=== PATIENT | female | born 1985 | race Caucasian/White ===

== ENCOUNTER 2017-11-05 13:30 | Emergency (ER) | payer OTHER, MEDICAID ==
[~2017-11-05] VITALS: Ht 175.3 cm; Wt 117.9 kg
[~2017-11-05 13:30] MED LIST: AMOXICILLIN500 M1 PO; AMOXICILLIN875 MG PO; AZITHROMYCIN 2250 MG PO; BIRTH CONTROL; CARAFATE1 GM PO; CEPHALEXIN 500500 M3 PO; CIPRODEX OTIC7.5 ML OTIC; CLARITIN10 M3 PO; CORTISPORIN OTI10 M2 OT; CORTISPORIN OTI10 ML OTIC; CORTIZONE-1028 G1 TP; FLONASE 0.05%50 MCG NASAL; HYDROCODON-ACE1 EAC7 PO; IBUPROFEN 800800 M1 PO; LIDOCAINE VISC100 ML PO; MEDROL DOSPAK21 TA1 PO; MEDROLDOSEPACK PO; MONONESSA1 EACH; NORCO 5-325 TA1 EAC1 PO; NORCO 5-325 TA1 EACH; OTIC CARE OTIC14 ML OT; PERCOCET PO; PROAIR HFA8.5 GM; PROMETHAZINE D480 ML PO; PROMETHAZINE-D120 ML PO; TESSALON PERLE100 MG PO; TRAMADOL 50 MG50 MG PO; TRINATE TABLET1 TAB PO; ZOLOFT 50 MG TA50 M1
[2017-11-05] MEDS ORDERED: ALBUTEROL2.5 MG/31 INH (13:35)
[2017-11-05] MEDS ORDERED: KEFLEX500 M1 PO (13:45)
[2017-11-05] MEDS ORDERED: ACETAMINOPHEN-1 EAC1 PO (13:46)
[2017-11-05 13:51] VITALS: BP 133/98
== END 2017-11-05 13:52 | disposition home or self-care (01) ==
LOC: M.ERS 13:30
DX: H66.93 Otitis media, unspecified, bilateral (principal); G43.909 Migraine, unspecified, not intractable, without status migrainosus; F32.9 Major depressive disorder, single episode, unspecified; J45.909 Unspecified asthma, uncomplicated; F17.210 Nicotine dependence, cigarettes, uncomplicated; Z88.1 Allergy status to other antibiotic agents

== ENCOUNTER 2017-11-18 20:37 | Emergency (ER) | payer MEDICAID ==
[~2017-11-18] VITALS: Ht 175.3 cm; Wt 117.9 kg
[~2017-11-18 20:37] MED LIST changes: +ACETAMINOPHEN-1 EAC1 PO; +ALBUTEROL2.5 MG/31 INH; +KEFLEX500 M1 PO
[2017-11-18 20:55] LABS: URINE BILIRUBIN NEGATIVE (Negative); URINE BLOOD 2+ (Negative); URINE CLARITY CLEAR; URINE COLOR YELLOW; URINE GLUCOSE-RANDOM NEGATIVE (Negative); URINE KETONES NEGATIVE (Negative); URINE LEUKOCYTES-REFLEX NEGATIVE (Negative); URINE NITRITE-REFLEX NEGATIVE (Negative); URINE PROTEIN 2+ (Negative); URINE SPECIFIC GRAVITY >= 1.030 (1.005-1.030); URINE UROBILINOGEN 0.2 E.U./dl (0.2-1.0)
[2017-11-18 21:04] LABS: MUCUS 0-3 Light strn/LPF (None Seen); SQUAMOUS >10 Many /LPF (0-3)
[2017-11-18 21:05] LABS: URINE RBC 3-10 Few /HPF (0-2); URINE WBC-REFLEX 0-5 Rare /HPF (0-5)
[2017-11-18 21:06] LABS: HYALINE CASTS 0-3 Few /LPF (None Seen)
[2017-11-18 21:07] LABS: CRYSTALS None Seen /LPF (None Seen)
[2017-11-18 21:09] LABS: ABSOLUTE BASOPHILS 0.1 thou/uL (0.0-0.2); ABSOLUTE EOSINOPHILS 0.3 thou/uL (0.0-0.7); ABSOLUTE LYMPHOCYTES 3.5 thou/uL (0.8-5.3); ABSOLUTE NEUTROPHILS 6.4 thou/uL (1.6-8.1); BASOPHILS 0.9 %; EOSINOPHILS 2.7 %; HEMOGLOBIN 13.5 gm/dL (12.0-15.0); LYMPHOCYTES 31.1 %; MCH 27.5 pg (26.0-34.0); MCV 83.5 fL (80.0-100.0); MPV 10.5 fl. (7.2-11.1); NUCLEATED RBCS 0 /100WBC; PLATELET COUNT* 287 thou/uL (150-400); POLYS 56.3 %; RDW-CV 14.7 % (10.5-14.5); WBC 11.3 thou/uL (4.0-11.0)
[2017-11-18 21:25] LABS: ALBUMIN 3.8 g/dL (3.4-5.0); CALCIUM 8.9 mg/dL (8.5-10.1); CREATININE 0.7 mg/dL (0.6-1.3); POTASSIUM 3.9 mmol/L (3.5-5.1); TOTAL BILIRUBIN 0.2 mg/dL (<0.1-1.0); TOTAL PROTEIN 7.7 g/dL (6.4-8.2)
[2017-11-18] MEDS ORDERED: NORCO 5-325 TA1 EAC1 PO (22:54)
[2017-11-18] MEDS ORDERED: FLOMAX0.4 MG PO (22:54)
[2017-11-18] MEDS ORDERED: CIPRO250 M2 PO (22:54)
[2017-11-18] MEDS ORDERED: PHENERGAN 25 MG25 M1 PO (22:54)
[2017-11-18 23:51] VITALS: BP 132/79
== END 2017-11-18 23:52 | disposition home or self-care (01) ==
LOC: M.ERS 20:37
PROVIDERS: Nurse Practitioner
DX: N20.0 Calculus of kidney (principal); G43.909 Migraine, unspecified, not intractable, without status migrainosus; J45.909 Unspecified asthma, uncomplicated; F32.9 Major depressive disorder, single episode, unspecified; Z98.890 Other specified postprocedural states

== ENCOUNTER 2018-03-17 08:41 | Emergency (ER) | payer OTHER, MEDICAID ==
[~2018-03-17] VITALS: Ht 172.7 cm; Wt 119.8 kg
[~2018-03-17 08:41] MED LIST changes: +CIPRO250 M2 PO; +FLOMAX0.4 MG PO; +PHENERGAN 25 MG25 M1 PO
[2018-03-17] MEDS ORDERED: PREDNISONE50 MG PO (10:03)
[2018-03-17] MEDS ORDERED: AUGMENTIN 875-1 EACH PO (10:03)
[2018-03-17] MEDS ORDERED: VENTOLIN HFA 1818 GM INH (10:06)
[2018-03-17 10:16] VITALS: BP 161/92
== END 2018-03-17 10:18 | disposition home or self-care (01) ==
LOC: M.ERS 08:41
DX: J45.909 Unspecified asthma, uncomplicated (principal); J32.9 Chronic sinusitis, unspecified; G43.909 Migraine, unspecified, not intractable, without status migrainosus; F32.9 Major depressive disorder, single episode, unspecified; Z98.890 Other specified postprocedural states; F17.210 Nicotine dependence, cigarettes, uncomplicated; Z88.2 Allergy status to sulfonamides; Z88.8 Allergy status to other drugs, medicaments and biological substances

== ENCOUNTER 2018-07-18 13:06 | Emergency (ER) | payer OTHER, MEDICAID ==
[~2018-07-18] VITALS: Ht 175.3 cm; Wt 121.1 kg
[~2018-07-18 13:06] MED LIST changes: +AUGMENTIN 875-1 EACH PO; +PREDNISONE50 MG PO; +VENTOLIN HFA 1818 GM INH
[2018-07-18] MEDS ORDERED: ZOLOFT100 MG PO (13:21)
[2018-07-18] MEDS ORDERED: AUGMENTIN 500-1 EACH PO (13:47)
[2018-07-18] MEDS ORDERED: VENTOLIN HFA 1818 GM INH (13:47)
[2018-07-18] MEDS ORDERED: PREDNISONE 20 M20 MG PO (13:47)
[2018-07-18 14:29] VITALS: BP 139/81
== END 2018-07-18 14:30 | disposition home or self-care (01) ==
LOC: M.ERS 13:06
DX: H66.93 Otitis media, unspecified, bilateral (principal); J45.901 Unspecified asthma with (acute) exacerbation; G43.909 Migraine, unspecified, not intractable, without status migrainosus; F32.9 Major depressive disorder, single episode, unspecified; F17.210 Nicotine dependence, cigarettes, uncomplicated; Z88.1 Allergy status to other antibiotic agents; Z88.2 Allergy status to sulfonamides; Z98.890 Other specified postprocedural states

== ENCOUNTER 2018-07-28 07:56 | Inpatient (IN) | payer MEDICAID ==
[~2018-07-28] VITALS: Ht 175.3 cm; Wt 120.1 kg
[~2018-07-28 07:56] MED LIST changes: +AUGMENTIN 500-1 EACH PO; +PREDNISONE 20 M20 MG PO; +ZOLOFT100 MG PO
[2018-07-28 08:03] VITALS: BP 140/89
[2018-07-28 09:54] LABS: URINE BILIRUBIN NEGATIVE (Negative); URINE BLOOD NEGATIVE (Negative); URINE CLARITY CLEAR; URINE COLOR YELLOW; URINE GLUCOSE-RANDOM NEGATIVE (Negative); URINE KETONES NEGATIVE (Negative); URINE LEUKOCYTES-REFLEX NEGATIVE (Negative); URINE NITRITE-REFLEX NEGATIVE (Negative); URINE PROTEIN NEGATIVE (Negative); URINE SPECIFIC GRAVITY >= 1.030 (1.005-1.030); URINE UROBILINOGEN 0.2 E.U./dl (0.2-1.0)
[2018-07-28 09:58] LABS: ABSOLUTE EOSINOPHILS 0.2 thou/uL (0.0-0.7); ABSOLUTE LYMPHOCYTES 1.6 thou/uL (0.8-5.3); ABSOLUTE MONOCYTES 0.8 thou/uL (0.0-1.2); ABSOLUTE NEUTROPHILS 7.2 thou/uL (1.6-8.1); BASOPHILS 0.4 %; EOSINOPHILS 1.8 %; HEMATOCRIT 38.5 % (37.0-47.0); LYMPHOCYTES 16.2 %; MCHC 33.7 g/dL (28.0-37.0); MCV 83.1 fL (80.0-100.0); MONOCYTES 7.9 %; MPV 8.6 fl. (7.2-11.1); NUCLEATED RBCS 0 /100WBC; PLATELET COUNT* 298 thou/uL (150-400); POLYS 73.7 %; RBC 4.63 mil/uL (4.20-5.00); RDW-CV 13.8 % (10.5-14.5); WBC 9.7 thou/uL (4.0-11.0)
[2018-07-28 10:07] LABS: CALCIUM 9.4 mg/dL (8.5-10.1); CREATININE 0.6 mg/dL (0.6-1.3); POTASSIUM 3.9 mmol/L (3.5-5.1)
[2018-07-28 10:11] LABS: ALBUMIN 3.3 g/dL (3.4-5.0); TOTAL BILIRUBIN 0.2 mg/dL (<0.1-1.0); TOTAL PROTEIN 7.5 g/dL (6.4-8.2)
[2018-07-28 10:11] LABS: BE -2.3 mmol/L (-2 to +3); HCO3 18.4 mmol/L (22.0-26.0); PCO2 22.3 mmHg (35.0-45.0); PO2 69.1 mmHg (75.0-100.0); pH 7.534 (7.340-7.450)
[2018-07-28 10:33] VITALS: BP 148/79
[2018-07-28 10:45] VITALS: BP 151/80
[2018-07-28 11:53] VITALS: BP 138/77
[2018-07-28 17:09] VITALS: BP 124/68
--- NOTE | 2018-07-28 17:14 | NUR ---
PATIENT ADMITTED TO ROOM 308 FROM ER. ALERT AND ORIENTED X 4. PATIENT PLACED ON 2L FOR ABG VALUES. IVF INFUSING, SCHED ABX INFUSED ORDERED. UP WITH ASSISTANCE; [address] PATIENT GIVEN PRN HYDROCODONE FOR CHEST/BACK PAIN, GOOD RELIEF NOTED. PATIENT GIVEN 2ND DOSE OF VICODIN FOR HEADACHE THIS EVENING, PATIENT ALSO REQUESTING ICE PACK. SCHED STEROIDS AND RT TREATMENTS ORDERED.
[2018-07-28 20:30] VITALS: BP 134/68
[2018-07-29 00:40] VITALS: BP 110/67; BP 120/70
[2018-07-29 03:45] VITALS: BP 108/60
--- NOTE | 2018-07-29 06:08 | NUR ---
PT SLEPT ON AND OFF THIS SHIFT. ASSESSMENT DOCUMENTED. MEDS GIVEN PER E-SEP. IV PATENT, FLUIDS INFUSING. PAIN MEDS GIVEN PER E-SEP. PT REQUESTED, SOMETHING TO HELP HER SLEEP, NOTIFIED, ORDERS RECIEVED. PT ASKED TO TRY TO GO WITHOUT O2 PART OF SHIFT, O2 ENDED UP BEING PLACED BACK ON DUE TO O2 SAT DROPPING TO 80'S. WILL CONTINUE WITH PLAN OF CARE.
[2018-07-29 07:36] VITALS: BP 106/63
[2018-07-29] MEDS ORDERED: BENADRYL25 MG PO (11:51)
[2018-07-29] MEDS ORDERED: EXCEDRIN MIGRA1 EAC1 PO (11:51)
[2018-07-29 16:00] VITALS: BP 117/69
--- NOTE | 2018-07-29 16:45 | NUR ---
ASSESSMENT COMPLETE. PT ALERT AND ORIENTED X4. PT REPORTS MIGRAINE AND PAIN IN BACK/CHEST FROM COUGHING. DR STARTED MIGRAINE MEDICATION PRN. PT IS ON 2L OK NC WITH [place] SATS. SOA WITH ACTIVITY. PT IS SR ON TELE MONITOR. IV FLUIDS INFUSING. PT DENIES N/V. REPORTS CONSTIPATION, DR STARTED MIRALAX BID. VSS, AFEBRILE. PT IS UP AD MANJIT WITH STEADY GAIT. SEE ASSESSMENT AND VITALS FOR OTHER DETAILS. CALL LIGHT WITHIN REACH. WILL CONTINUE PLAN OF CARE
[2018-07-29 20:00] VITALS: BP 103/54
[2018-07-30 04:05] LABS: ABSOLUTE LYMPHOCYTES 1.5 thou/uL (0.8-5.3); ABSOLUTE MONOCYTES 0.7 thou/uL (0.0-1.2); ABSOLUTE NEUTROPHILS 11.8 thou/uL (1.6-8.1); BASOPHILS 0.2 %; HEMATOCRIT 35.1 % (37.0-47.0); HEMOGLOBIN 11.4 gm/dL (12.0-15.0); LYMPHOCYTES 10.7 %; MCH 27.4 pg (26.0-34.0); MCHC 32.4 g/dL (28.0-37.0); MCV 84.6 fL (80.0-100.0); MONOCYTES 5.1 %; MPV 9.4 fl. (7.2-11.1); NUCLEATED RBCS 0 /100WBC; PLATELET COUNT* 289 thou/uL (150-400); RBC 4.15 mil/uL (4.20-5.00); WBC 14.1 thou/uL (4.0-11.0)
--- NOTE | 2018-07-30 05:33 | NUR ---
PT SLEPT ON AND OFF THIS SHIFT. ASSESSMENT DOCUMENTED. MEDS GIVEN PER E-SEP. IV PATNET, FLUIDS INFUSING. FIORICET GIVEN FOR MIGRANE AND PAIN MEDS GIVEN FOR BACK AND CHEST PAIN FROM COUGHING. WILL CONTINUE WITH PLAN OF CARE.
[2018-07-30 07:28] VITALS: BP 125/76
[2018-07-30] MEDS ORDERED: PREDNISONE 20 M20 MG PO (10:58)
[2018-07-30] MEDS ORDERED: MUCINEX600 MG PO (10:58)
[2018-07-30] MEDS ORDERED: AZITHROMYCIN 2250 MG PO (10:58)
[2018-07-30] MEDS ORDERED: CEFDINIR300 MG PO (10:58)
[2018-07-30] MEDS ORDERED: HYDROCODON-ACE1 EAC7 PO (10:58)
[2018-07-30 11:17] VITALS: BP 125/76
[2018-07-30 11:25] VITALS: BP 125/76
[2018-07-30 11:27] VITALS: BP 125/76
--- NOTE | 2018-07-30 13:01 | NUR ---
ASSESSMENT COMPLETE. PT ALERT AND ORIENTED X4. PRN PAIN MEDICATION GIVEN ONCE FOR HEADACHE. PT DENIES N/V. PT REPORTS FEELING BETTER TODAY. DC PAPERWORK GIVEN AND PT VERBALIZES UNDERSTANDING. PT VSS, AFEBRILE. IV DC'D WITHOUT ANY DIFFICULTY. PT IS ON ROOM AIR WITH [place] SATS. PRESCRIPTIONS GIVEN TO PT. ALL BELONGINGS SENT HOME WITH PT. PT LEFT VIA WHEELCHAIR TO PERSONAL VEHICLE WITH SPOUSE.
[2018-07-30 13:04] VITALS: BP 125/76
== END 2018-07-30 13:05 | disposition home or self-care (01) | DRG 194 ==
LOC: M.ERS 07:56 → M.3W 09:50 → M.TBA-ER 09:50 → M.3W 10:39
PROVIDERS: Personal Emergency Response Attendant; ADMIT Internal Medicine
DX: J15.9 Unspecified bacterial pneumonia (principal); J45.901 Unspecified asthma with (acute) exacerbation; G43.909 Migraine, unspecified, not intractable, without status migrainosus; F17.200 Nicotine dependence, unspecified, uncomplicated; E86.0 Dehydration; K59.00 Constipation, unspecified; F32.9 Major depressive disorder, single episode, unspecified; Z88.2 Allergy status to sulfonamides; Z88.8 Allergy status to other drugs, medicaments and biological substances; Z79.82 Long term (current) use of aspirin

== ENCOUNTER 2019-12-25 15:40 | Emergency (ER) | payer OTHER ==
[~2019-12-25] VITALS: Ht 175.3 cm; Wt 131.5 kg
[~2019-12-25 15:40] MED LIST changes: +BENADRYL25 MG PO; +CEFDINIR300 MG PO; +EXCEDRIN MIGRA1 EAC1 PO; +MUCINEX600 MG PO
[2019-12-25] MEDS ORDERED: CELEXA 20 MG TA20 MG PO (15:53)
[2019-12-25 16:57] LABS: URINE BILIRUBIN NEGATIVE (Negative); URINE BLOOD NEGATIVE (Negative); URINE CLARITY CLEAR; URINE COLOR YELLOW; URINE GLUCOSE-RANDOM NEGATIVE (Negative); URINE KETONES NEGATIVE (Negative); URINE LEUKOCYTES-REFLEX TRACE (Negative); URINE NITRITE-REFLEX NEGATIVE (Negative); URINE PROTEIN NEGATIVE (Negative); URINE SPECIFIC GRAVITY 1.025 (1.005-1.030); URINE UROBILINOGEN 0.2 E.U./dl (0.2-1.0)
[2019-12-25 17:03] LABS: BACTERIA-REFLEX >30 Many /HPF (None Seen); SQUAMOUS >10 Many /LPF (0-3); URINE RBC 0-2 Rare /HPF (0-2); URINE WBC-REFLEX 0-5 Rare /HPF (0-5)
[2019-12-25 17:04] LABS: CASTS None Seen /LPF (None Seen); CRYSTALS None Seen /LPF (None Seen)
[2019-12-25] MEDS ORDERED: KEFLEX500 M1 PO (17:20)
[2019-12-25] MEDS ORDERED: TYLENOL WITH CO1 TA1 PO (17:20)
[2019-12-25 17:35] VITALS: BP 155/98
== END 2019-12-25 17:35 | disposition home or self-care (01) ==
LOC: M.ERS 15:40
PROVIDERS: Nurse Practitioner Family
DX: N39.0 Urinary tract infection, site not specified (principal); F17.210 Nicotine dependence, cigarettes, uncomplicated; F32.9 Major depressive disorder, single episode, unspecified; G43.909 Migraine, unspecified, not intractable, without status migrainosus; J45.909 Unspecified asthma, uncomplicated; Z88.1 Allergy status to other antibiotic agents; Z88.2 Allergy status to sulfonamides; Z98.51 Tubal ligation status

== ENCOUNTER 2020-06-11 23:47 | Emergency (ER) | payer OTHER ==
[~2020-06-11] VITALS: Ht 175.3 cm; Wt 130.2 kg
[~2020-06-11 23:47] MED LIST changes: +CELEXA 20 MG TA20 MG PO; +TYLENOL WITH CO1 TA1 PO
[2020-06-12] MEDS ORDERED: AMOXICILLIN875 MG PO (00:31)
[2020-06-12] MEDS ORDERED: HYDROCODON-ACE1 EAC8 PO (00:31)
[2020-06-12 00:44] VITALS: BP 144/86
== END 2020-06-12 00:44 | disposition home or self-care (01) ==
LOC: M.ERS 23:47
DX: H66.92 Otitis media, unspecified, left ear (principal); K08.89 Other specified disorders of teeth and supporting structures; G43.909 Migraine, unspecified, not intractable, without status migrainosus; J45.909 Unspecified asthma, uncomplicated; F32.9 Major depressive disorder, single episode, unspecified; F17.210 Nicotine dependence, cigarettes, uncomplicated; Z98.51 Tubal ligation status; Z98.890 Other specified postprocedural states; Z79.899 Other long term (current) drug therapy; Z79.82 Long term (current) use of aspirin; Z88.2 Allergy status to sulfonamides

== ENCOUNTER 2020-06-25 20:07 | Emergency (ER) | payer OTHER ==
[~2020-06-25] VITALS: Ht 175.3 cm; Wt 130.2 kg
[~2020-06-25 20:07] MED LIST changes: +HYDROCODON-ACE1 EAC8 PO
[2020-06-25 20:42] LABS: INFLUENZA A ANTIGEN Negative (Negative); INFLUENZA B ANTIGEN Negative (Negative)
[2020-06-25] MEDS ORDERED: PREDNISONE 20 M20 MG PO (21:12)
[2020-06-25] MEDS ORDERED: ZPAK PO (21:12)
[2020-06-25 21:40] VITALS: BP 141/85
== END 2020-06-25 21:40 | disposition home or self-care (01) ==
LOC: M.ERS 20:07
PROVIDERS: Nurse Practitioner Family
DX: J45.901 Unspecified asthma with (acute) exacerbation (principal); Z20.828 Contact with and (suspected) exposure to other viral communicable diseases; G43.909 Migraine, unspecified, not intractable, without status migrainosus; F17.210 Nicotine dependence, cigarettes, uncomplicated; Z88.1 Allergy status to other antibiotic agents; Z88.2 Allergy status to sulfonamides; Z98.890 Other specified postprocedural states; Z98.51 Tubal ligation status

== ENCOUNTER 2020-11-03 15:12 | Emergency (ER) | payer OTHER ==
[~2020-11-03] VITALS: Ht 175.3 cm; Wt 131.5 kg
[~2020-11-03 15:12] MED LIST changes: +ZPAK PO
[2020-11-03 16:00] VITALS: BP 158/93
[2020-11-03] MEDS ORDERED: CORTISPORIN OTI10 M2 OTIC (16:16)
== END 2020-11-03 16:00 | disposition home or self-care (01) ==
LOC: M.ERS 15:12
DX: H60.92 Unspecified otitis externa, left ear (principal); G43.909 Migraine, unspecified, not intractable, without status migrainosus; J45.909 Unspecified asthma, uncomplicated; F17.210 Nicotine dependence, cigarettes, uncomplicated; Z88.1 Allergy status to other antibiotic agents; Z88.2 Allergy status to sulfonamides; Z98.51 Tubal ligation status; Z98.890 Other specified postprocedural states

== ENCOUNTER 2021-03-15 11:25 | Emergency (ER) | payer OTHER ==
[~2021-03-15] VITALS: Ht 175.3 cm; Wt 131.5 kg
[~2021-03-15 11:25] MED LIST changes: +CORTISPORIN OTI10 M2 OTIC
[2021-03-15] MEDS ORDERED: PROZAC20 MG PO (11:51)
[2021-03-15 12:11] LABS: URINE BILIRUBIN NEGATIVE (Negative); URINE BLOOD NEGATIVE (Negative); URINE CLARITY CLEAR; URINE COLOR YELLOW; URINE GLUCOSE-RANDOM NEGATIVE (Negative); URINE KETONES NEGATIVE (Negative); URINE LEUKOCYTES-REFLEX NEGATIVE (Negative); URINE NITRITE-REFLEX NEGATIVE (Negative); URINE PROTEIN TRACE (Negative); URINE SPECIFIC GRAVITY >= 1.030 (1.005-1.030); URINE UROBILINOGEN 0.2 E.U./dl (0.2-1.0)
[2021-03-15 13:23] LABS: ABSOLUTE BASOPHILS 0.1 thou/uL (0.0-0.2); ABSOLUTE EOSINOPHILS 0.3 thou/uL (0.0-0.7); ABSOLUTE LYMPHOCYTES 1.8 thou/uL (0.8-5.3); ABSOLUTE MONOCYTES 0.5 thou/uL (0.0-1.2); ABSOLUTE NEUTROPHILS 3.6 thou/uL (1.6-8.1); EOSINOPHILS 5.5 %; LYMPHOCYTES 28.4 %; MCH 28.9 pg (26.0-34.0); MCHC 33.5 g/dL (28.0-37.0); MCV 86.3 fL (80.0-100.0); MONOCYTES 7.9 %; MPV 9.3 fl. (7.2-11.1); NUCLEATED RBCS 0 /100WBC; PLATELET COUNT* 233 thou/uL (150-400); POLYS 57.2 %; RBC 4.51 mil/uL (4.20-5.00); RDW-CV 13.9 % (10.5-14.5); WBC 6.2 thou/uL (4.0-11.0)
[2021-03-15 13:31] LABS: CALCIUM 8.7 mg/dL (8.5-10.1); CREATININE 0.6 mg/dL (0.6-1.3); POTASSIUM 3.9 mmol/L (3.5-5.1)
[2021-03-15 13:35] LABS: ALBUMIN 3.9 g/dL (3.4-5.0); TOTAL BILIRUBIN 0.5 mg/dL (<0.1-1.0); TOTAL PROTEIN 7.3 g/dL (6.4-8.2)
[2021-03-15] MEDS ORDERED: IBUPROFEN 800800 M1 PO (14:02)
[2021-03-15] MEDS ORDERED: ZANAFLEX4 MG PO (14:02)
[2021-03-15 14:21] VITALS: BP 141/70
== END 2021-03-15 14:21 | disposition home or self-care (01) ==
LOC: M.ERS 11:25
PROVIDERS: Nurse Practitioner Family
DX: R10.32 Left lower quadrant pain (principal); R74.01 Elevation of levels of liver transaminase levels; G43.909 Migraine, unspecified, not intractable, without status migrainosus; F32.9 Major depressive disorder, single episode, unspecified; E66.01 Morbid (severe) obesity due to excess calories; J45.909 Unspecified asthma, uncomplicated; F17.210 Nicotine dependence, cigarettes, uncomplicated; Z98.890 Other specified postprocedural states; Z87.442 Personal history of urinary calculi; Z79.899 Other long term (current) drug therapy; Z88.2 Allergy status to sulfonamides; Z88.8 Allergy status to other drugs, medicaments and biological substances; Z68.41 Body mass index [BMI] 40.0-44.9, adult